=== PATIENT | female | born 1935 | race Caucasian/White ===

== ENCOUNTER → 2016-08-26 | Outpatient (REF) ==
[~2016-08-26] MED LIST: ASPIRIN E.C. 8181 MG PO; CIMZIA200 MG/ML SC; DETROL1 MG PO; DUO-KAPS1 CAP PO; FOLIC ACID0.4 MG; HCTZ12.5TAB PO; LEVOXYL0.1 MG PO; NEURONTIN100 MG/CAP PO; NEXIUM 20MG20 MG; NORCO 325 MG-7.1 TAB PO; OMEGA-3 FISH1200 MG PO; REMICADE V100 MG/VIA IV; ROXICODONE 55 MG/TAB PO; TYLENOL 325MG325 MG PO; ULTRAM 50MG TAB50 MG; VITAMIN D 400400 IU; VITAMIN E100 I3; ZANTAC 150MG T150 MG PO
[2016-08-26 16:15] LABS: C-REACTIVE PROTEIN 1.2 mg/dL (0.0-0.9)
[2016-08-26 16:43] LABS: THYROID STIMULATING HORMONE 3.18 uIU/mL (0.465-4.680)
== END ==
LOC: ZLAB.WCH 16:00
PROVIDERS: Internal Medicine
DX: Z01.89 Encounter for other specified special examinations (principal)

== ENCOUNTER 2016-12-06 13:29 | Outpatient (CLI) | payer MEDICARE, OTHER ==
[2016-12-06 13:55] VITALS: BP 132/58; PULSE 84; TEMP 98.3
== END 2016-12-06 15:35 | disposition home or self-care (01) ==
LOC: EUO 13:29
DX: M81.0 Age-related osteoporosis without current pathological fracture (principal); M06.89 Other specified rheumatoid arthritis, multiple sites; D86.0 Sarcoidosis of lung; I05.9 Rheumatic mitral valve disease, unspecified; E03.4 Atrophy of thyroid (acquired); K21.0 Gastro-esophageal reflux disease with esophagitis; I27.2 Other secondary pulmonary hypertension; M85.89 Other specified disorders of bone density and structure, multiple sites; M19.019 Primary osteoarthritis, unspecified shoulder
CPT/HCPCS: J3489

== ENCOUNTER → 2017-06-30 | Outpatient (CLI) | payer MEDICARE, OTHER | LOC: COL.PUL 09:48 | DX: R06.02 Shortness of breath (principal); M06.89 Other specified rheumatoid arthritis, multiple sites; D86.0 Sarcoidosis of lung ==

== ENCOUNTER → 2017-07-04 | Outpatient (CLI) | payer MEDICARE, OTHER | LOC: COL.PUL 13:00 | DX: D86.0 Sarcoidosis of lung (principal); R06.02 Shortness of breath; M06.89 Other specified rheumatoid arthritis, multiple sites; Z88.5 Allergy status to narcotic agent; Z88.0 Allergy status to penicillin; Z88.8 Allergy status to other drugs, medicaments and biological substances ==

== ENCOUNTER → 2017-08-16 | Outpatient (CLI) | payer MEDICARE, OTHER | LOC: COL.VAS 13:15 | DX: I51.7 Cardiomegaly (principal) ==